=== PATIENT | male | born 1980 | race Caucasian/White ===

== ENCOUNTER → 2020-12-27 | Outpatient (CLI) | payer OTHER ==
[2021-01-01 07:10] LABS: TESTOSTERONE, FREE, DIRECT 12.4 pg/mL (8.7-25.1)
== END ==
LOC: LAB 19:37
PROVIDERS: Nurse Practitioner Family
DX: F10.20 Alcohol dependence, uncomplicated (principal); F11.20 Opioid dependence, uncomplicated; F14.20 Cocaine dependence, uncomplicated; F12.20 Cannabis dependence, uncomplicated; F15.10 Other stimulant abuse, uncomplicated
CPT/HCPCS: 36415; 82642; 84153; 84402; 84403; 84410